=== PATIENT | male | born 1975 | race Caucasian/White ===

== ENCOUNTER 2017-05-24 10:00 | Emergency (ER) | payer MEDICAID ==
[2017-05-24 10:28] VITALS: BP 119/73; PULSE 62; RESP 16; TEMP 97; O2SAT 98
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
--- NOTE | 2017-05-24 11:39 | RAD ---
PROCEDURE: Radiographs of the left elbow. HISTORY: Trauma COMPARISON: None available. FINDINGS: BONES: No acute displaced fracture. JOINTS: No dislocation. SOFT TISSUES: Unremarkable. No evidence of radiopaque foreign body. JOINT EFFUSION: No significant joint effusion. OTHER FINDINGS: None IMPRESSION: No acute displaced fracture, dislocation, or significant joint effusion identified. If symptoms persist, or if there is continued clinical concern, x-ray follow-up in 7-10 days should be considered.
== END 2017-05-24 11:29 | disposition home or self-care (01) ==
LOC: H.ER 10:00
DX: S20.219A Contusion of unspecified front wall of thorax, initial encounter (principal); S50.02XA Contusion of left elbow, initial encounter; W22.8XXA Striking against or struck by other objects, initial encounter; Y92.89 Other specified places as the place of occurrence of the external cause